=== PATIENT | female | born 1935 | race Caucasian/White ===

== ENCOUNTER 2018-09-09 06:26 | Day surgery (SDC) | payer OTHER ==
[~2018-09-09 06:26] MED LIST: GABAPENTIN400 MG PO; NORVASC5 MG; SINGULAIR10 MG PO; SYMBICORT 80/10.2 GM IH; ZOLOFT25 MG PO
== END 2018-09-09 19:30 | disposition home or self-care (01) ==
LOC: CIR.AMB 06:26
DX: D05.12 Intraductal carcinoma in situ of left breast (principal)

== ENCOUNTER 2018-09-09 09:33 | Outpatient (CLI) | payer OTHER | END 2018-09-09 09:40 | disposition home or self-care (01) | LOC: MAMO-SONO 09:33 | DX: D05.12 Intraductal carcinoma in situ of left breast (principal); R97.0 Elevated carcinoembryonic antigen [CEA] ==

== ENCOUNTER 2018-09-27 14:19 | Emergency (ER) | payer OTHER ==
[~2018-09-27] VITALS: Ht 157.5 cm; Wt 65.3 kg
== END 2018-09-27 18:24 | disposition home or self-care (01) ==
LOC: ER 14:19
DX: M25.532 Pain in left wrist (principal)

== ENCOUNTER 2019-03-06 13:11 | Emergency (ER) | payer OTHER ==
[~2019-03-06] VITALS: Ht 157.5 cm; Wt 61.2 kg
[2019-03-06] MEDS ORDERED: XOPENEX0.63 MG/3 (13:34)
[2019-03-06] MEDS ORDERED: SKELAXIN800 MG PO (17:07)
[2019-03-06] MEDS ORDERED: NAPROXEN500 MG PO (17:07)
== END 2019-03-06 17:25 | disposition home or self-care (01) ==
LOC: ER 13:11
DX: M54.5 Low back pain (principal)

== ENCOUNTER 2019-06-10 14:49 | Emergency (ER) | payer OTHER ==
[~2019-06-10] VITALS: Ht 157.5 cm; Wt 60.8 kg
[~2019-06-10 14:49] MED LIST changes: +NAPROXEN500 MG PO; +SKELAXIN800 MG PO; +XOPENEX0.63 MG/3
[2019-06-10] MEDS ORDERED: NORVASC2.5 M1 (15:08)
[2019-06-10] MEDS ORDERED: GABAPENTIN (15:09)
[2019-06-10] MEDS ORDERED: CALCIUM500 M2 (15:10)
[2019-06-10] MEDS ORDERED: OMEGA 3-6-9 11200 M1 (15:10)
== END 2019-06-10 22:57 | disposition home or self-care (01) ==
LOC: ER 14:49
DX: J06.9 Acute upper respiratory infection, unspecified (principal); R05 Cough; R09.81 Nasal congestion

== ENCOUNTER 2019-10-12 12:54 | Emergency (ER) | payer OTHER ==
[~2019-10-12] VITALS: Ht 157.5 cm; Wt 56.7 kg
[~2019-10-12 12:54] MED LIST changes: +CALCIUM500 M2; +GABAPENTIN; +NORVASC2.5 M1; +OMEGA 3-6-9 11200 M1
[2019-10-12] MEDS ORDERED: ANASTROZOLE1 MG PO (13:18)
[2019-10-12] MEDS ORDERED: ACYCLOVIR800 MG PO (13:18)
[2019-10-12] MEDS ORDERED: SERTRALINE HCL25 MG PO (13:19)
[2019-10-12] MEDS ORDERED: GABAPENTIN400 MG PO (13:19)
[2019-10-12] MEDS ORDERED: SYMBICORT 16010.2 GM (13:19)
[2019-10-12] MEDS ORDERED: NORVASC2.5 MG PO (13:19)
[2019-10-12] MEDS ORDERED: MONTELUKAST SOD10 MG PO (13:19)
[2019-10-12] MEDS ORDERED: PEPCID AC20 MG PO (16:05)
[2019-10-12] MEDS ORDERED: NEURONTIN800 MG PO (16:05)
[2019-10-12] MEDS ORDERED: VALACYCLOVIR1000 MG PO (16:05)
== END 2019-10-12 16:14 | disposition home or self-care (01) ==
LOC: ER 12:54
DX: B02.8 Zoster with other complications (principal); K29.60 Other gastritis without bleeding

== ENCOUNTER 2019-10-20 14:07 | Emergency (ER) | payer OTHER ==
[~2019-10-20] VITALS: Ht 157.5 cm; Wt 56.7 kg
[~2019-10-20 14:07] MED LIST changes: +ACYCLOVIR800 MG PO; +ANASTROZOLE1 MG PO; +MONTELUKAST SOD10 MG PO; +NEURONTIN800 MG PO; +NORVASC2.5 MG PO; +PEPCID AC20 MG PO; +SERTRALINE HCL25 MG PO; +SYMBICORT 16010.2 GM; +VALACYCLOVIR1000 MG PO
[2019-10-20] MEDS ORDERED: [UNRECOGNIZED DRUG - OTHER] (14:40)
[2019-10-20] MEDS ORDERED: VITAMIN D310 MCG/1 M (14:41)
[2019-10-20] MEDS ORDERED: ZOLOFT25 MG (14:41)
== END 2019-10-20 17:01 | disposition home or self-care (01) ==
LOC: ER 14:07
DX: B02.8 Zoster with other complications (principal)

== ENCOUNTER 2019-11-04 13:10 | Emergency (ER) | payer OTHER ==
[~2019-11-04] VITALS: Ht 157.5 cm; Wt 56.7 kg
[~2019-11-04 13:10] MED LIST changes: +VITAMIN D310 MCG/1 M; +ZOLOFT25 MG; +[UNRECOGNIZED DRUG - OTHER]
[2019-11-04] MEDS ORDERED: MONTELUKAST SOD10 MG PO (13:49)
[2019-11-04] MEDS ORDERED: ALBUTEROL SULFATE IH (13:51)
== END 2019-11-04 16:48 | disposition home or self-care (01) ==
LOC: ER 13:10
DX: R07.89 Other chest pain (principal); M54.89 Other dorsalgia; B02.8 Zoster with other complications

== ENCOUNTER 2020-08-31 22:36 | Emergency (ER) | payer OTHER ==
[~2020-08-31] VITALS: Ht 157.5 cm; Wt 58.1 kg
[~2020-08-31 22:36] MED LIST changes: +ALBUTEROL SULFATE IH
[2020-08-31] MEDS ORDERED: SERTRALINE HCL25 MG PO (22:45)
[2020-08-31] MEDS ORDERED: LISINOPRIL5 MG PO (22:45)
[2020-08-31] MEDS ORDERED: BUSPIRONE HCL15 MG PO (22:45)
[2020-08-31] MEDS ORDERED: ANASTROZOLE1 MG PO (22:46)
== END 2020-09-01 00:57 | disposition home or self-care (01) ==
LOC: ER 22:36
DX: S05.01XA Injury of conjunctiva and corneal abrasion without foreign body, right eye, initial encounter (principal); H57.11 Ocular pain, right eye; W45.8XXA Other foreign body or object entering through skin, initial encounter; Y93.89 Activity, other specified; Y92.89 Other specified places as the place of occurrence of the external cause; Y99.8 Other external cause status

== ENCOUNTER 2021-01-21 12:11 | Emergency (ER) | payer OTHER ==
[~2021-01-21] VITALS: Ht 162.6 cm; Wt 54.9 kg
[~2021-01-21 12:11] MED LIST changes: +BUSPIRONE HCL15 MG PO; +LISINOPRIL5 MG PO
[2021-01-21] MEDS ORDERED: NEURONTIN300 MG (12:44)
[2021-01-21] MEDS ORDERED: ADULT LOW DOSE81 M1 PO (12:45)
[2021-01-21] MEDS ORDERED: ZESTRIL5 MG PO (12:46)
[2021-01-21] MEDS ORDERED: ZOLOFT25 MG PO (12:46)
== END 2021-01-21 16:00 | disposition home or self-care (01) ==
LOC: ER 12:11
DX: J45.998 Other asthma (principal)

== ENCOUNTER 2021-01-23 06:32 | Emergency (ER) | payer OTHER ==
[~2021-01-23] VITALS: Ht 157.5 cm; Wt 58.5 kg
[~2021-01-23 06:32] MED LIST changes: +ADULT LOW DOSE81 M1 PO; +NEURONTIN300 MG; +ZESTRIL5 MG PO
== END 2021-01-23 14:48 | disposition home or self-care (01) ==
LOC: ER 06:32
DX: J47.9 Bronchiectasis, uncomplicated (principal); J40 Bronchitis, not specified as acute or chronic; Z03.818 Encounter for observation for suspected exposure to other biological agents ruled out

== ENCOUNTER 2021-03-21 13:03 | Emergency (ER) | payer OTHER ==
[~2021-03-21] VITALS: Ht 152.4 cm; Wt 59.0 kg
[2021-03-21] MEDS ORDERED: BUPAP 50 MG-301 EACH (13:34)
== END 2021-03-21 17:32 | disposition home or self-care (01) ==
LOC: ER 13:03
DX: M79.605 Pain in left leg (principal)

== ENCOUNTER 2021-06-06 05:31 | Emergency (ER) | payer OTHER ==
[~2021-06-06] VITALS: Ht 165.1 cm; Wt 77.1 kg
[~2021-06-06 05:31] MED LIST changes: +BUPAP 50 MG-301 EACH
== END 2021-06-06 11:44 | disposition home or self-care (01) ==
LOC: ER 05:31
DX: R30.0 Dysuria (principal); I10 Essential (primary) hypertension; R11.10 Vomiting, unspecified

== ENCOUNTER 2022-05-04 11:25 | Emergency (ER) | payer OTHER ==
[~2022-05-04] VITALS: Ht 157.5 cm; Wt 54.4 kg
[~2022-05-04 11:25] MED LIST changes: +ARIMIDEX; +BUSPAR; +RECLAST 55 MG/100 M IV
[2022-05-04] MEDS ORDERED: ZITHROMAX500 MG PO (19:01)
[2022-05-04] MEDS ORDERED: XOPENEX0.63 MG/3 IH (19:01)
[2022-05-04] MEDS ORDERED: MEDROLPACK PO (19:01)
== END 2022-05-04 20:17 | disposition home or self-care (01) ==
LOC: ER 11:25
DX: J45.901 Unspecified asthma with (acute) exacerbation (principal); Z88.0 Allergy status to penicillin; Z91.018 Allergy to other foods

== ENCOUNTER 2022-07-28 23:16 | Emergency (ER) | payer OTHER ==
[~2022-07-28] VITALS: Ht 157.5 cm; Wt 56.7 kg
[~2022-07-28 23:16] MED LIST changes: +MEDROLPACK PO; +XOPENEX0.63 MG/3 IH; +ZITHROMAX500 MG PO
[2022-07-29] MEDS ORDERED: NABUMETONE750 MG PO (03:17)
== END 2022-07-29 04:12 ==
LOC: ER 23:16
DX: S99.921A Unspecified injury of right foot, initial encounter (principal); S39.92XA Unspecified injury of lower back, initial encounter; Z88.0 Allergy status to penicillin; Z91.018 Allergy to other foods; M19.90 Unspecified osteoarthritis, unspecified site; J45.909 Unspecified asthma, uncomplicated; W18.39XA Other fall on same level, initial encounter; Y93.F1 Activity, caregiving, bathing; Y92.012 Bathroom of single-family (private) house as the place of occurrence of the external cause

== ENCOUNTER 2024-05-14 18:45 | Inpatient (IN) | payer OTHER ==
[~2024-05-14] VITALS: Ht 152.4 cm; Wt 59.0 kg
[~2024-05-14 18:45] MED LIST changes: +NABUMETONE750 MG PO
[2024-05-14 20:52] LABS: HEMATOCRIT 38.6 % (36.0-45.00); HEMOGLOBIN 13.1 g/dL (12.0-15.00); MEAN CELL VOLUME 90.2 fL (80.00-100.00); MEAN CORPUSCULAR HEMOGLOBIN 30.6 pg (27.00-32.0); MEAN CORPUSCULAR HGB CONC 33.9 g/dl (32.0-36.0); PLATELET COUNT 333 K/uL (150-450); RED BLOOD COUNT 4.28 M/uL (4.00-6.00); RED CELL DISTRIBUTION WIDTH 14.1 % (11.5-14.5)
[2024-05-14 21:08] LABS: CALCIUM 9.1 mg/dL (8.5-10.1); CREATININE SERUM 1.26 mg/dL (0.55-1.02); GFR 39.98; POTASSIUM 3.24 mEq/L (3.5-5.1)
[2024-05-14] MEDS ORDERED: AZITHROMYCIN 500 MG VIAL IV SCH (22:38)
[2024-05-14] MEDS ORDERED: FAMOTIDINE/PF 20 MG in 0.9 % SODIUM CHLORIDE 8 ML IV PUSH SCH (22:39)
[2024-05-14] MEDS ORDERED: METHYLPREDNISOLONE SOD SUCC 40 MG VIAL IV SCH (22:40)
[2024-05-14] MEDS ORDERED: 0.9 % SODIUM CHLORIDE 1,000 ML IV SCH (22:45)
[2024-05-14] MEDS ORDERED: ACETAMINOPHEN 325 MG TABLET PO PRN (22:45)
[2024-05-14] MEDS ORDERED: POTASSIUM CHLORIDE IN WATER 100 ML IV ONE (22:45)
[2024-05-15] MEDS ORDERED: LEVALBUTEROL HCL 0.63 MG/3 ML SOLUTION IH SCH (01:00)
[2024-05-15] MEDS ORDERED: METHYLPREDNISOLONE SOD SUCC 40 MG VIAL ONE (01:42)
[2024-05-15] MEDS ORDERED: AZITHROMYCIN 500 MG VIAL IV ONE ×2 (01:43→07:52)
[2024-05-15] MEDS ORDERED: FAMOTIDINE/PF 20 MG/2 ML VIAL ONE (01:43)
[2024-05-15] MEDS ORDERED: LEVALBUTEROL HCL 0.63 MG/3 ML SOLUTION IH ONE (02:04)
[2024-05-15 02:12] LABS: ABG PH 7.442 (7.35-7.45); ABG PO2 66.9 mmHg (80-100); ABG pCO2 48.3 mmHg (35-45); BASE EXCESS 6.8 mmol/l; BICARBONATE 32.2 mmol/l (23-25); SaO2 94.1 %; Tco2 33.7 mmol/l; allen test SATISFACTORY; o2 21 %; puncture site RADIAL RIGHT
[2024-05-15 04:12] VITALS: O2SAT 95
[2024-05-15 05:26] VITALS: BP 117/72; O2SAT 97
[2024-05-15 05:42] LABS: ALBUMIN 3.2 gm/dL (3.4-5.0); BILIRUBIN TOTAL 0.89 mg/dL (0.3-1.2); CALCIUM 9.2 mg/dL (8.5-10.1); CREATININE SERUM 1.19 mg/dL (0.55-1.02); GFR 42.71; GLOBULINA 3.8 G/DL (2.4-3.5); POTASSIUM 3.4 mEq/L (3.5-5.1)
[2024-05-15] MEDS ORDERED: ACETAMINOPHEN 500 MG GEL..CAP PO PRN (07:00)
[2024-05-15 08:28] VITALS: BP 121/71; O2SAT 96
[2024-05-15] MEDS ORDERED: RIVAROXABAN 20 MG TABLET PO SCH (09:00)
[2024-05-15] MEDS ORDERED: SERTRALINE HCL 50 MG TABLET PO SCH (09:00)
[2024-05-15] MEDS ORDERED: BUSPIRONE HCL 15 MG TABLET PO NR (10:30)
[2024-05-15] MEDS ORDERED: levoFLOXacin IN DEXTROSE 5 % 150 ML IV SCH (14:00)
[2024-05-15 15:14] VITALS: O2SAT 95
[2024-05-15 15:57] VITALS: BP 115/60; O2SAT 95
[2024-05-15 20:10] VITALS: O2SAT 90
[2024-05-16] VITALS (8 sets, daily range): BP systolic 126–134; BP diastolic 67–71; O2SAT 90–96
[2024-05-16 07:41] LABS: HEMATOCRIT 37.8 % (36.0-45.00); HEMOGLOBIN 12.7 g/dL (12.0-15.00); MEAN CELL VOLUME 91.8 fL (80.00-100.00); MEAN CORPUSCULAR HEMOGLOBIN 30.8 pg (27.00-32.0); MEAN CORPUSCULAR HGB CONC 33.6 g/dl (32.0-36.0); PLATELET COUNT 292 K/uL (150-450); RED BLOOD COUNT 4.12 M/uL (4.00-6.00); RED CELL DISTRIBUTION WIDTH 13.5 % (11.5-14.5)
[2024-05-16] MEDS ORDERED: BUSPIRONE HCL 15 MG TABLET PO SCH ×2 (09:00→21:00)
[2024-05-16 10:39] LABS: MYCOPLASMA PNEUMONIAE IGM NON REACTIVE (NO REACTIVE)
[2024-05-16] MEDS ORDERED: VANCOMYCIN HCL 5 MG/ML REDILUIDO IV SCH (17:00)
[2024-05-17 01:37] VITALS: O2SAT 99
[2024-05-17 05:22] VITALS: BP 126/86; O2SAT 93
[2024-05-17 05:23] VITALS: BP 159/58; O2SAT 95
[2024-05-17 06:32] VITALS: O2SAT 98
[2024-05-17 07:43] LABS: CALCIUM 8.1 mg/dL (8.5-10.1); CREATININE SERUM 0.63 mg/dL (0.55-1.02); GFR 88.98; MAGNESIUM 1.6 mg/dL (1.8-2.4); POTASSIUM 3.13 mEq/L (3.5-5.1)
[2024-05-17 08:36] VITALS: O2SAT 71
[2024-05-17] MEDS ORDERED: MAGNESIUM SULFATE IN WATER 50 ML IV NR (08:45)
[2024-05-17] MEDS ORDERED: FAMOTIDINE/PF 20 MG in 0.9 % SODIUM CHLORIDE 8 ML IV PUSH SCH (09:00)
[2024-05-17] MEDS ORDERED: POTASSIUM CHLORIDE IN WATER 40 MEQ/100 ML PIGGYBAG IV SCH (09:00)
[2024-05-17 09:12] VITALS: BP 156/90
== END 2024-05-17 17:33 | disposition expired | DRG 871 ==
LOC: ER 18:45 → SURG 22:36 → SEC-K 22:36 → SURG 05-15 03:01
PROVIDERS: General Practice; Internal Medicine Infectious Disease; ADMIT Internal Medicine; ATTEND Internal Medicine
PROC: BB24ZZZ Computerized Tomography (CT Scan) of Bilateral Lungs (ICD-10-PCS; 2024-05-14)
PROC: 4A12X4Z Monitoring of Cardiac Electrical Activity, External Approach (ICD-10-PCS; 2024-05-15)
PROC: 3E0F7GC Introduction of Other Therapeutic Substance into Respiratory Tract, Via Natural or Artificial Opening (ICD-10-PCS; 2024-05-15)
PROC: 0BH17EZ Insertion of Endotracheal Airway into Trachea, Via Natural or Artificial Opening (ICD-10-PCS; principal; 2024-05-17)
PROC: B246YZZ Ultrasonography of Right and Left Heart using Other Contrast (ICD-10-PCS; 2024-05-17)
PROC: 5A12012 Performance of Cardiac Output, Single, Manual (ICD-10-PCS; 2024-05-17)
DX: A41.9 Sepsis, unspecified organism (principal); I21.9 Acute myocardial infarction, unspecified; J18.0 Bronchopneumonia, unspecified organism; J44.1 Chronic obstructive pulmonary disease with (acute) exacerbation; I48.20 Chronic atrial fibrillation, unspecified; I46.2 Cardiac arrest due to underlying cardiac condition; I10 Essential (primary) hypertension; E87.6 Hypokalemia; E86.0 Dehydration; F32.89 Other specified depressive episodes; Z79.01 Long term (current) use of anticoagulants